=== PATIENT | female | born 1975 ===

== ENCOUNTER 2019-01-23 17:53 | Observation (INO) | payer OTHER ==
[2019-01-23] MEDS ORDERED: Oxycodone/Acetaminophen 5/325 mg Tab PO STA ×2 (18:01→18:02)
[2019-01-23] MEDS ORDERED: Sodium Chloride 0.9% 1,000 ML IV STA ×2 (18:27→18:32)
[2019-01-23] MEDS ORDERED: Morphine 4 MG/ML VIAL ONE (18:28)
[2019-01-23 19:25] LABS: BASO % 0.2 % (0.0-2.0); EOS % 0.4 % (0.0-4.0); HEMOGLOBIN 13.8 g/dL (12.0-16.0); LYMPH # 1.4 K/uL (1.0-4.3); LYMPH % 14.1 % (20.0-40.0); MEAN CELL VOLUME 96.6 fl (81.0-99.0); MEAN CORPUSCULAR HEMOGLOBIN 32.1 pg (27.0-31.0); MEAN CORPUSCULAR HGB CONC 33.2 g/dL (33.0-37.0); MEAN PLATELET VOLUME 8.9 fl (7.2-11.7); MONO # 0.7 K/uL (0.0-0.8); MONO % 6.8 % (0.0-10.0); NEUT # 7.7 K/uL (1.8-7.0); NEUT % 78.5 % (50.0-75.0); RBC 4.29 Mil/uL (3.80-5.20); RED CELL DISTRIBUTION WIDTH 13.9 % (11.5-14.5); WHITE BLOOD COUNT 9.8 K/uL (4.8-10.8)
[2019-01-23 19:38] LABS: ALB/GLOB RATIO 1.2 (1.0-2.1); ALBUMIN 4.3 g/dL (3.5-5.0); ALT/SGPT 23 U/L (9-52); AST/SGOT 23 U/L (14-36); BLOOD UREA NITROGEN 17 mg/dl (7-17); CALCIUM 9.7 mg/dL (8.4-10.2); GFR NON-AFRICAN AMERICAN > 60
[2019-01-23 19:59] LABS: PARTIAL THROMBOPLASTIN TIME 27.5 Seconds (25.6-37.1); PROTHROMBIN TIME 11.2 Seconds (9.8-13.1)
--- NOTE | 2019-01-23 21:05 | ED PDOC ---
Upper Extremity Pain/Injury Time Seen by Provider: 01/23/19 17:59 Chief Complaint (Nursing): Finger,Hand,&Wrist Chief Complaint (Provider): Right Wrist Injury History Per: Patient History/Exam Limitations: no limitations Onset/Duration Of Symptoms: Mins (30 min before arrival) Current Symptoms Are (Timing): Still Present Additional Complaint(s): 43 year old female presents to the ED for evaluation of a right wrist injury approximately thirty minutes prior to arrival s/p a trip and fall associated with numbness to all fingers in the affected hand. She notes she fractured the same wrist last year but it did not require surgical intervention. Reports having numbness to all finger tips. Denies other injury. Right hand dominant PMD: not in area Past Medical History Reviewed: Historical Data, Nursing Documentation, Vital Signs Vital Signs: Last Vital Signs Temp 98.3 F 01/23/19 17:55 Pulse 68 01/23/19 19:56 Resp 16 01/23/19 17:55 BP 127/85 01/23/19 19:56 Pulse Ox 98 01/23/19 17:55 - Medical History PMH: Fractures (right wrist) - Surgical History Surgical History: No Surg Hx - Family History Family History: States: Unknown Family Hx - Social History Current smoker - smoking cessation education provided: No Alcohol: Social Drugs: Denies - Home Medications Home Medications: Ambulatory Orders Medication Instructions Recorded Bupropion HCl [Wellbutrin Sr] 150 mg PO DAILY 01/23/19 - Allergies Allergies/Adverse Reactions: Allergies Allergy/AdvReac Type Severity Reaction Status Date / Time No Known Allergies Allergy Verified 01/23/19 17:56 Review of Systems ROS Statement: Except As Marked, All Systems Reviewed And Found Negative Musculoskeletal: Positive for: Other (right wrist pain) Neurological: Positive for: Numbness (to all fingers of right hand) Physical Exam - Reviewed Nursing Documentation Reviewed: Yes Vital Signs Reviewed: Yes - Physical Exam Appears: Positive for: In Acute Distress (severe painful) Head Exam: Positive for: ATRAUMATIC, NORMAL INSPECTION, NORMOCEPHALIC Skin: Positive for: Normal Color, Warm Eye Exam: Positive for: Normal appearance Neck: Positive for: Normal, Painless ROM, Supple Cardiovascular/Chest: Positive for: Regular Rate, Rhythm Respiratory: Positive for: Normal Breath Sounds. Negative for: Respiratory Distress Pulses-Radial (L): 2+ Pulses-Radial (R): 2+ Gastrointestinal/Abdominal: Positive for: Normal Exam, Soft. Negative for: Tend erness Back: Positive for: Normal Inspection Extremity: Positive for: Capillary Refill (less than 2 seconds), Deformity (right wrist), Other (able to actively move all digits of right hand) Neurologic/Psych: Positive for: Alert, Oriented (x3) - Laboratory Results Result Diagrams: 01/23/19 19:16 01/23/19 19:16 Lab Results: PT 11.2 Seconds (9.8-13.1) 01/23/19 19:16 INR 1.0 01/23/19 19:16 APTT 27.5 Seconds (25.6-37.1) 01/23/19 19:16 Total Bilirubin 0.5 mg/dl (0.2-1.3) 01/23/19 19:16 AST 23 U/L (14-36) 01/23/19 19:16 ALT 23 U/L (9-52) 01/23/19 19:16 Alkaline Phosphatase 49 U/L (38-126) 01/23/19 19:16 Total Protein 7.9 G/DL (6.3-8.2) 01/23/19 19:16 Albumin 4.3 g/dL (3.5-5.0) 01/23/19 19:16 Globulin 3.6 gm/dL (2.2-3.9) 01/23/19 19:16 Albumin/Globulin Ratio 1.2 (1.0-2.1) 01/23/19 19:16 - ECG O2 Sat by Pulse Oximetry: 98 (RA) Pulse Ox Interpretation: Normal Medical Decision Making Medical Decision Making: Time: 1800 Initial Impression: deformity to right wrist, likely fracture Initial Plan: --Percocet 2 tab PO --NS IV fluids --Right forearm XR --Right wrist XR XRs reviewed: distal radial fracture with serve displacement and dislocation of radius and ulna [address] Bell who reviewed images and states he will see patient in hospital tomorrow for operation. He requested patient be placed on NPO diet after midnight. Additional orders: --Morphine 4mg IVP secondary to patients severe persistent pain --Zofran 4mg IVP --CBC with differential --PTT --PT/INR --Type and screen --CMP --HCG, qualitative --CT right upper extremity 1856 On reevaluation, patient states she is still in severe pain. Additional 2mg IVP Morphine ordered. 1999 Pt. just moved from [place] and has no PMD or orthopedist here. Case discussed with Dr. Cabrera (med store protection specialist) and arrangements for admission were made. 2009 On reevaluation, patient notes still being in acute pain. Toradol 30mg IVP ordered. 2099 Upon reevaluation, patient reports pain still unrelieved with other medications. Dilaudid 1mg IVP ordered. Attempted to keep arm elevated and iced but pt. unable to tolerate position. Prefers to keep arm in sling as it is the most comfortable position for her. Further reports during the last injury she sustained a fracture to the tailbone. Reports that she saw her chiropractor for it. Reports also landing in a seated position today. Reports minimal pain to the area. Prefers to not do any x-rays at this time. Scribe Attestation: Documented by Irena Ruiz, acting as a scribe for Herminio Benito PA-C. Provider Scribe Attestation: All medical record entries made by the Scribe were at my direction and personally dictated by me. I have reviewed the chart and agree that the record accurately reflects my personal performance of the history, physical exam, medical decision making, and the department course for this patient. I have also personally directed, reviewed, and agree with the discharge instructions and disposition. Procedures - Time-Out Type of Procedure: Splint placement Site of Procedure: R arm Correct Patient: Yes Correct Procedure: Yes Correct Site Marked: Yes X-Ray Marked: Yes - Splinting Location: R arm Hand-Made Type: orthoglass Splint: sugar-tong Pre-Proc Neuro Vasc Exam: normal Post-Proc Neuro Vasc Exam: normal Disposition - Clinical Impression Clinical Impression: Fracture dislocation of wrist - Patient ED Disposition Is Patient to be Admitted: Yes - Disposition Disposition Time: 18:20 Condition: FAIR
[2019-01-23] MEDS: Morphine 5 MG/ML SYRINGE IVP PRN (23:24)
[2019-01-23] MEDS: buPROPion SR 150 MG TABLET PO SCH (23:52)
[2019-01-23] MEDS: Sodium Chloride 0.9% 1,000 ML IV SCH (23:55)
[2019-01-24] MEDS ORDERED: Morphine 5 MG/ML SYRINGE IVP ONE (01:17)
[2019-01-24] MEDS: Morphine 5 MG/ML SYRINGE IVP PRN ×2 (05:39→09:49)
[2019-01-24 06:29] LABS: HEMOGLOBIN 11.6 g/dL (12.0-16.0); MEAN CELL VOLUME 96.7 fl (81.0-99.0); MEAN CORPUSCULAR HGB CONC 33.1 g/dL (33.0-37.0); RBC 3.64 Mil/uL (3.80-5.20); RED CELL DISTRIBUTION WIDTH 13.8 % (11.5-14.5); WHITE BLOOD COUNT 6.4 K/uL (4.8-10.8)
--- NOTE | 2019-01-24 07:24 | CP.PCM.CON ---
History of Present Illness - History of Present Illness History of Present Illness: Orthopedic consult: Dr. Bell Patient is a 43 y/o RHD female c/o R wrist pain. Patient reports a slip and fall injury on outstretched right hand at home on her hardwood floor. She experienced immediate pain and deformity. She also complains of numbness and tingling to fingers. She reports a similar injury in December 2017, fracturing her right wrist but was treated conservatively with cast immobilization. She currently denies CP/SOB/N/V/D/fever/melena/dysuria. She was seen at bedside with splint removed beside her. She notes that long arm splint was placed in ER yesterday however, she removed the splint overnight due to pain. PMH: denies PSH: denies meds: none allergy: NKDA SH: ETOH occasionally, denies tobacco and drug use Review of Systems - Review of Systems All systems: reviewed and no additional remarkable complaints except Review of Systems: as per HPI Past Patient History - Past Medical History & Family History Past Medical History?: No Past Family History: Reviewed and not pertinent - Past Social History Alcohol: Social Drugs: Denies - CARDIAC Hx Cardiac Disorders: No - MUSCULOSKELETAL/RHEUMATOLOGICAL Hx Fractures: Yes (right wrist) - PSYCHIATRIC Hx Psychophysiologic Disorder: No Hx Substance Use: No - ANESTHESIA Hx Anesthesia: No Hx Anesthesia Reactions: No Meds Allergies/Adverse Reactions: Allergies Allergy/AdvReac Type Severity Reaction Status Date / Time No Known Allergies Allergy Verified 01/23/19 17:56 - Medications Medications: Current Medications Bupropion HCl (Wellbutrin Sr 150 Mg) 150 mg PO DAILY [facility] Last Admin: 01/23/19 23:52 Dose: 150 mg Sodium Chloride (Sodium Chloride 0.9%) 1,000 mls @ 80 mls/hr IV .[id number] [facility] Stop: 01/24/19 23:36 Last Admin: 01/23/19 23:55 Dose: 80 mls/hr Morphine Sulfate (Morphine) 4 mg IVP Q4 PRN PRN Reason: Pain, severe (8-10) Last Admin: 01/24/19 05:39 Dose: 4 mg Physical Exam - Constitutional Appears: Well, No Acute Distress - Eye Exam Eye Exam: EOMI, Normal appearance - ENT Exam ENT Exam: Mucous Membranes Moist - Respiratory Exam Respiratory Exam: NORMAL BREATHING PATTERN - Extremities Exam Additional comments: RUE: Long arm splint intact sensation intact MN/UN/RN motor intact MN/UN/RN 2 sec cap refill all fingers LUE: no deformity, no lesions, no swelling sensation intact MN/UN/RN motor intact MN/UN/RN 2 sec cap refill all fingers - Neurological Exam Neurological exam: Alert, Oriented x3 - Psychiatric Exam Psychiatric exam: Normal Affect, Normal Mood - Skin Skin Exam: Normal Color, Warm Results - Vital Signs Recent Vital Signs: Last Vital Signs Temp 97.2 F L 01/24/19 00:38 Pulse 99 H 01/24/19 00:38 Resp 20 01/24/19 00:38 BP 124/77 01/24/19 00:38 Pulse Ox 98 01/24/19 00:38 - Labs Result Diagrams: 01/24/19 05:25 01/24/19 05:25 Labs: Laboratory Results - last 24 hr 01/23/19 01/23/19 01/23/19 19:16 19:16 19:16 WBC 9.8 RBC 4.29 Hgb 13.8 Hct 41.5 MCV 96.6 MCH 32.1 H MCHC 33.2 RDW 13.9 Plt Count 265 MPV 8.9 Neut % (Auto) 78.5 H Lymph % (Auto) 14.1 L [place] % (Auto) 6.8 Eos % (Auto) 0.4 Baso % (Auto) 0.2 Neut # (Auto) 7.7 H Lymph # (Auto) 1.4 [place] # (Auto) 0.7 Eos # (Auto) 0.0 Baso # (Auto) 0.0 PT 11.2 INR 1.0 APTT 27.5 Sodium 138 Potassium 4.0 Chloride 103 Carbon Dioxide 22 Anion Gap 17 BUN 17 Creatinine 0.9 Est GFR ( Amer) > 60 Est GFR (Non-Af Amer) > 60 Random Glucose 115 H Calcium 9.7 Total Bilirubin 0.5 AST 23 ALT 23 Alkaline Phosphatase 49 Total Protein 7.9 Albumin 4.3 Globulin 3.6 Albumin/Globulin Ratio 1.2 Serum HCG, Qual Blood Type Antibody Screen BBK History Checked 01/23/19 01/23/19 01/24/19 19:16 19:16 05:25 WBC 6.4 RBC 3.64 L Hgb 11.6 L D Hct 35.2 MCV 96.7 MCH 32.0 H MCHC 33.1 RDW 13.8 Plt Count 217 MPV Neut % (Auto) Lymph % (Auto) [place] % (Auto) Eos % (Auto) Baso % (Auto) Neut # (Auto) Lymph # (Auto) [place] # (Auto) Eos # (Auto) Baso # (Auto) PT INR APTT Sodium Potassium Chloride Carbon Dioxide Anion Gap BUN Creatinine Est GFR ( Amer) Est GFR (Non-Af Amer) Random Glucose Calcium Total Bilirubin AST ALT Alkaline Phosphatase Total Protein Albumin Globulin Albumin/Globulin Ratio Serum HCG, Qual Negative Blood Type A POSITIVE Antibody Screen Negative BBK History Checked No verified bt - Impressions Impression: Accession No. : [id number] Patient Name / ID : GHAZAL MERIDA / [id number] Exam Date : 01/23/2019 17:59:49 ( Approved ) Study Comment : Sex / Age : F / 43Y Creator : isidro chandra Dictator : Donita Dhillon Child Development Specialist : Publishing Editor : Donita Dhillon Approver2 : Report Date : 01/23/2019 18:23:12 My Comment : Date of service: 01/23/2019 PROCEDURE: Right Wrist Radiographs. HISTORY: deformity COMPARISON: None. FINDINGS: BONES: There is a comminuted fracture of the distal radial metaphysis and epiphysis with impaction and/or over riding inferred on this single frontal view. Intra- articular extension is suggested Note is made that the forearm also had a single frontal view JOINTS: Limited assessment. Nevertheless the distal radial comminuted fracture suggest intra-articular extension SOFT TISSUES: Soft tissue swelling and deformity OTHER FINDINGS: None. IMPRESSION: Distal radial comminuted fracture with intra-articular extension. Limited exam given the single frontal view. Accession No. : [id number] Patient Name / ID : GHAZAL MERIDA / [id number] Exam Date : 01/23/2019 19:08:21 ( Approved ) Study Comment : Sex / Age : F / 43Y Creator : corine morgan Dictator : Shailesh Ruiz MD Child Development Specialist : Publishing Editor : Shailesh Ruiz MD Approver2 : Report Date : 01/23/2019 20:43:57 My Comment : Date of service: 01/23/2019 PROCEDURE: CT right wrist HISTORY: trauma with deformity COMPARISON: Not available TECHNIQUE: 2.5 mm contiguous axial sections were acquired through the right wrist. Sagittal and coronal images were reformatted from the axial scan. FINDINGS: There is a comminuted transverse distal radial fracture with marked dorsal displacement and overriding of the main fracture fragments. There is dorsal angulation of the distal radial fragment with the articulating carpus. There is possible disruption of the distal radial ulnar joint. There is a minimally displaced ulnar styloid process fracture. There is no other fracture identified. The intercarpal and carpal-metacarpal articulations appear intact. Normal carpal alignment is maintained. IMPRESSION: Comminuted dorsally displaced transverse distal radial fracture with overriding and dorsal angulation. Possible disruption of distal radial ulnar joint. Minimally displaced ulnar styloid process fracture. The preliminary findings for this examination were reported by [facility] at 8:32 p.m. on 01/23/2019. There is concurrence of this report with the preliminary findings. Assessment & Plan (1) Fracture of right distal radius Assessment and Plan: -Dr. Bell recommends OR today for R wrist ORIF -NPO -Risks/benefits/alternatives were explained to the patient who expresses understanding and agrees to proceed with above. -above d/w Dr. Bell in agreement Status: Acute - Date & Time Date: 01/24/19 Time: 07:15
[2019-01-24 07:26] LABS: ALB/GLOB RATIO 1.5 (1.0-2.1); ALBUMIN 3.8 g/dL (3.5-5.0); ALT/SGPT 30 U/L (9-52); AST/SGOT 19 U/L (14-36); BLOOD UREA NITROGEN 15 mg/dl (7-17); CALCIUM 8.5 mg/dL (8.4-10.2); GFR NON-AFRICAN AMERICAN > 60
[2019-01-24] MEDS: buPROPion SR 150 MG TABLET PO SCH (08:42)
--- NOTE | 2019-01-24 10:54 | CT ---
Date of service: 01/23/2019 PROCEDURE: CT right wrist HISTORY: trauma with deformity COMPARISON: Not available TECHNIQUE: 2.5 mm contiguous axial sections were acquired through the right wrist. Sagittal and coronal images were reformatted from the axial scan. FINDINGS: There is a comminuted transverse distal radial fracture with marked dorsal displacement and overriding of the main fracture fragments. There is dorsal angulation of the distal radial fragment with the articulating carpus. There is possible disruption of the distal radial ulnar joint. There is a minimally displaced ulnar styloid process fracture. There is no other fracture identified. The intercarpal and carpal-metacarpal articulations appear intact. Normal carpal alignment is maintained. IMPRESSION: Comminuted dorsally displaced transverse distal radial fracture with overriding and dorsal angulation. Possible disruption of distal radial ulnar joint. Minimally displaced ulnar styloid process fracture. The preliminary findings for this examination were reported by [facility] Radiology at 8:32 p.m. on 01/23/2019. There is concurrence of this report with the preliminary findings.
--- NOTE | 2019-01-24 11:02 | RAD ---
PROCEDURE: Radiographs of the Right Forearm HISTORY: trauma COMPARISON: None available. TECHNIQUE: Only a single frontal view is available. FINDINGS: BONES: Distal radial osseous deformity suspect for fracture is noted. No orthogonal views or additional views for further assessment are available. The fracture appears to extend into the radiocarpal joint. JOINT SPACES: Limited assessment. Findings as above OTHER FINDINGS: None. IMPRESSION: Distal radial fracture deformity with intra-articular extension suspect. The exam is limited given the single frontal view recommend two views. Comments: Study marked for PA review .
--- NOTE | 2019-01-24 11:05 | RAD ---
Date of service: 01/23/2019 PROCEDURE: Right Wrist Radiographs. HISTORY: deformity COMPARISON: None. FINDINGS: BONES: There is a comminuted fracture of the distal radial metaphysis and epiphysis with impaction and/or over riding inferred on this single frontal view. Intra-articular extension is suggested Note is made that the forearm also had a single frontal view JOINTS: Limited assessment. Nevertheless the distal radial comminuted fracture suggest intra-articular extension SOFT TISSUES: Soft tissue swelling and deformity OTHER FINDINGS: None. IMPRESSION: Distal radial comminuted fracture with intra-articular extension. Limited exam given the single frontal view.
--- NOTE | 2019-01-24 11:11 | RAD ---
Date of service: 01/24/2019 HISTORY: Admission/Pre-op COMPARISON: No prior. FINDINGS: LUNGS: No active pulmonary disease. PLEURA: Trace left inferolateral pleural reaction and/or pleural tenting. No significant appearing left pleural effusion noted No pneumothorax apparent. CARDIOVASCULAR: No aortic atherosclerotic calcification present. Normal cardiac size. No pulmonary vascular congestion. OSSEOUS STRUCTURES: No significant abnormalities. VISUALIZED UPPER ABDOMEN: Normal. OTHER FINDINGS: None. IMPRESSION: No consolidation.. Nonspecific findings as above. No significant cardiopulmonary pathology believed present.
--- NOTE | 2019-01-24 11:33 | CP.PCM.HP ---
History of Present Illness - History of Present Illness History of Present Illness: Patient tripped and fell at home sustaining Fx L wrist, She was seen in ER [facility] and [facility] Patient fell last year and sustained a Fx R wrist that was Tx with closed reduction, She has been treated with Accupuncture , NSAID, " anti inflammatory" diet for recurrent pain Cervical, L-S, Hips after that fall, She denies pain R wrist after that fall Present on Admission - Present on Admission Any Indicators Present on Admission: No Review of Systems - Constitutional Constitutional: Other (neg) - EENT Eyes: Other (neg) Ears: Other (neg) Nose/Mouth/Throat: Other (neg) - Cardiovascular Cardiovascular: Other (neg) - Respiratory Respiratory: Other (neg) - Gastrointestinal Gastrointestinal: Other (neg) - Genitourinary Genitourinary: Other (neg) - Musculoskeletal Musculoskeletal: Arthralgias, Back Pain, Neck Pain - Integumentary Integumentary: Other (neg) - Neurological Neurological: Other (neg) - Psychiatric Psychiatric: Anxiety, Depression - Endocrine Endocrine: Other (neg) - Hematologic/Lymphatic Hematologic: Other (nrg) Past Patient History - Tetanus Immunizations Tetanus Immunization: Unknown - Past Medical History & Family History Past Medical History?: No Past Family History: Reviewed and not pertinent - Past Social History Smoking Status: Current Some Days Smoker Cigar Use: Yes (former smoker 2ppd for 20 yrs, quit 7 yrs ago, occasional smoking now) Alcohol: Social Drugs: Denies - CARDIAC Hx Cardiac Disorders: No - PULMONARY Hx Respiratory Disorders: No - NEUROLOGICAL Hx Neurological Disorder: No - HEENT Hx HEENT Problems: No - RENAL Hx Chronic Kidney Disease: No - ENDOCRINE/METABOLIC Hx Endocrine Disorders: No - HEMATOLOGICAL/ONCOLOGICAL Hx Blood Disorders: No - INTEGUMENTARY Hx Dermatological Problems: No - MUSCULOSKELETAL/RHEUMATOLOGICAL Hx Back Pain: Yes Hx Fractures: Yes (right wrist) Other/Comment: Cervical , L-S, Hips pain post fall last year - GASTROINTESTINAL Hx Gastrointestinal Disorders: No - PSYCHIATRIC Hx Psychophysiologic Disorder: No Hx Depression: Yes Hx Substance Use: No - SURGICAL HISTORY Hx Surgeries: No - ANESTHESIA Hx Anesthesia: No Hx Anesthesia Reactions: No Meds Allergies/Adverse Reactions: Allergies Allergy/AdvReac Type Severity Reaction Status Date / Time No Known Allergies Allergy Verified 01/23/19 17:56 Physical Exam - Constitutional Appears: In Acute Distress (severe pain) - Head Exam Head Exam: ATRAUMATIC, NORMAL INSPECTION, NORMOCEPHALIC - Eye Exam Eye Exam: Normal appearance - ENT Exam ENT Exam: Normal Exam - Neck Exam Neck exam: Positive for: Tenderness - Respiratory Exam Respiratory Exam: NORMAL BREATHING PATTERN - Cardiovascular Exam Cardiovascular Exam: REGULAR RHYTHM - GI/Abdominal Exam GI & Abdominal Exam: Normal Bowel Sounds, Soft - Extremities Exam Extremities exam: Positive for: tenderness (R forearm, R hand splint with tenderness, numbness R fingers, moves R fingers) - Back Exam Back exam: tenderness Additional comments: L-S tenderness - Neurological Exam Neurological exam: Alert, CN II-XII Intact, Oriented x3 Additional comments: numbness R hand fingers, rest no motor/sensory deficit - Psychiatric Exam Psychiatric exam: Normal Affect, Normal Mood - Skin Skin Exam: Warm Results - Vital Signs Recent Vital Signs: Last Vital Signs Temp 97.9 F 01/24/19 08:01 Pulse 60 01/24/19 08:01 Resp 20 01/24/19 08:01 BP 106/64 01/24/19 08:01 Pulse Ox 97 01/24/19 08:01 - Labs Result Diagrams: 01/24/19 05:25 01/24/19 05:25 Labs: Laboratory Results - last 24 hr 01/23/19 01/23/19 01/23/19 19:16 19:16 19:16 WBC 9.8 RBC 4.29 Hgb 13.8 Hct 41.5 MCV 96.6 MCH 32.1 H MCHC 33.2 RDW 13.9 Plt Count 265 MPV 8.9 Neut % (Auto) 78.5 H Lymph % (Auto) 14.1 L [place] % (Auto) 6.8 Eos % (Auto) 0.4 Baso % (Auto) 0.2 Neut # (Auto) 7.7 H Lymph # (Auto) 1.4 [place] # (Auto) 0.7 Eos # (Auto) 0.0 Baso # (Auto) 0.0 PT 11.2 INR 1.0 APTT 27.5 Sodium 138 Potassium 4.0 Chloride 103 Carbon Dioxide 22 Anion Gap 17 BUN 17 Creatinine 0.9 Est GFR ( Amer) > 60 Est GFR (Non-Af Amer) > 60 Random Glucose 115 H Calcium 9.7 Total Bilirubin 0.5 AST 23 ALT 23 Alkaline Phosphatase 49 Total Protein 7.9 Albumin 4.3 Globulin 3.6 Albumin/Globulin Ratio 1.2 Thyroxine (T4) TSH 3rd Generation Serum HCG, Qual Blood Type Blood Type Confirm Antibody Screen BBK History Checked 01/23/19 01/23/19 01/24/19 19:16 19:16 05:25 WBC RBC Hgb Hct MCV MCH MCHC RDW Plt Count MPV Neut % (Auto) Lymph % (Auto) [place] % (Auto) Eos % (Auto) Baso % (Auto) Neut # (Auto) Lymph # (Auto) [place] # (Auto) Eos # (Auto) Baso # (Auto) PT INR APTT Sodium Potassium Chloride Carbon Dioxide Anion Gap BUN Creatinine Est GFR ( Amer) Est GFR (Non-Af Amer) Random Glucose Calcium Total Bilirubin AST ALT Alkaline Phosphatase Total Protein Albumin Globulin Albumin/Globulin Ratio Thyroxine (T4) TSH 3rd Generation Serum HCG, Qual Negative Blood Type A POSITIVE Blood Type Confirm A POSITIVE Antibody Screen Negative BBK History Checked No verified bt 01/24/19 01/24/19 05:25 05:25 WBC 6.4 RBC 3.64 L Hgb 11.6 L D Hct 35.2 MCV 96.7 MCH 32.0 H MCHC 33.1 RDW 13.8 Plt Count 217 MPV Neut % (Auto) Lymph % (Auto) [place] % (Auto) Eos % (Auto) Baso % (Auto) Neut # (Auto) Lymph # (Auto) [place] # (Auto) Eos # (Auto) Baso # (Auto) PT INR APTT Sodium 135 Potassium 3.6 Chloride 101 Carbon Dioxide 22 Anion Gap 16 BUN 15 Creatinine 0.6 L Est GFR ( Amer) > 60 Est GFR (Non-Af Amer) > 60 Random Glucose 122 H Calcium 8.5 Total Bilirubin 0.4 AST 19 ALT 30 Alkaline Phosphatase 38 D Total Protein 6.3 Albumin 3.8 Globulin 2.5 Albumin/Globulin Ratio 1.5 Thyroxine (T4) 6.21 TSH 3rd Generation 1.94 Serum HCG, Qual Blood Type Blood Type Confirm Antibody Screen BBK History Checked Assessment & Plan (1) Fracture dislocation of wrist Status: Acute (2) Fracture of right distal radius Status: Acute (3) History of depression Status: Acute (4) Lumbago Status: Acute (5) Cervical pain Status: Acute - Assessment and Plan (Free Text) Plan: CXR, EKG, blood test were reviewed, Patient is medically cleared for Surgery - Date & Time Date: 01/24/19 Time: 10:30
[2019-01-24] MEDS ORDERED: Rocuronium 10 mg/ml (5 ml) ONE (11:36)
[2019-01-24] MEDS ORDERED: Midazolam 2 MG/2 ML VIAL ONE (11:36)
[2019-01-24] MEDS ORDERED: Succinylcholine Chloride 20 mg/ml Syr (5 ml) IV ONE (11:36)
[2019-01-24] MEDS ORDERED: Propofol 10 mg/ml Inj (20 ML) ONE (11:36)
[2019-01-24] MEDS ORDERED: Lidocaine 4% (Laryng-O-Jet) Kit MM ONE (11:37)
[2019-01-24] MEDS ORDERED: Bupivacaine 0.5% Inj(30mL) ONE (11:43)
[2019-01-24] MEDS ORDERED: Ropivacaine 0.5% 30ML IV ONE (11:43)
[2019-01-24] MEDS ORDERED: Lactated Ringer's 1,000 ML IV ONE ×2 (12:25→14:45)
[2019-01-24] MEDS ORDERED: Sodium Chloride 0.9% 10 ML IV ONE (12:47)
[2019-01-24] MEDS ORDERED: ePHEDrine 50 mg/ml Inj ONE (12:47)
--- NOTE | 2019-01-24 13:34 | CARD ---
APPROVED REPORT Date of service: 01/24/2019 EKG Measurement Heart [id number] <Conclusion> Normal sinus rhythm Normal ECG
[2019-01-24] MEDS ORDERED: Oxycodone/Acetaminophen 5/325 mg Tab PO PRN ×2 (13:50→14:43)
[2019-01-24] MEDS ORDERED: Bacitracin Ointment 30 GM TUBE ONE (13:56)
[2019-01-24] MEDS ORDERED: Neostigmine 1:1000 (1 mg/ml) Inj ONE (14:00)
[2019-01-24] MEDS ORDERED: Morphine 5 MG/ML SYRINGE IVP PRN (14:43)
[2019-01-24] MEDS ORDERED: Dexamethasone 4 mg/1 ml IVP PRN (14:50)
[2019-01-24] MEDS ORDERED: HYDROmorphone 0.5 mg/0.5 ml ISec IVP PRN (14:50)
--- NOTE | 2019-01-24 14:55 | PCM.ANESB4 ---
Infraclavicular Block - Femoral Nerve Block Date of Procedure: 01/24/19 Anesthesiologist: Aric Kumar Pre-Procedure Diagnosis: Right wrist fracture Post-Procedure Diagnosis: R wrist fracture Procedure Performed: Brachial Plexus at the Infraclavicular area Right (Supraclavicular) - Procedure Infraclavicular Block: The procedure was explained to the patient that it is for the post-operative pain management. Consent was obtained after a thorough discussion with the patient regarding the benefits and possible complications of local anesthetic block of the brachial plexus at the supraclavicular area. The patient was brought to the operating room and standard monitors were applied. Time-out was held with the circulating nurse to confirm the correct surgery and the appropriate block. After inducing general anesthesia, patient's head was gently rotated away from the operative ___RIGHT shoulder and the area medial to the coracoid process and inferior to the clavicle was carefully palpated. The ultrasound transducer was then applied to the skin in the transverse plane and the brachial plexus was visualized surrounding the clavicular artery and deep to the pectoralis major and minor muscles. After thorough identification, this area was prepped with Chloraprep solution three times. At this point, a #21 gauge Stimuplex 4-inch needle was inserted cephalad to the ultrasound transducer and inferior to the clavicle in-plane towards the posterior aspect of the axillary artery. Needle advancement was performed carefully under ultrasound visualization. After repeated negative aspiration, ___5__cc of mixture of 0.5% bupivacaine and 0.5% ropivacaine with dexamethasone and this was followed with __25____ cc of the same mixture described. Under ultrasound guidance the local anesthetics were observed surrounding the cords of the brachial plexus. The needle was removed intact and sterile dressing was applied. The patient had stable vital signs, was conscious and in no apparent distress. The patient tolerated the supraclavicular block of the brachial plexus well with stable vital signs was prepared for subsequent surgery.
--- NOTE | 2019-01-24 14:55 | PCM.SURG1 ---
Surgeon's Initial Post Op Note - Surgeon's Notes Surgeon: Arabella Radiator Cleaner: DORITA Stone, 2nd assist Kasandra Portillo Type of Anesthesia: General Endo, Block Regional Anesthesia Administered By: DR alexandra Kumar Pre-Operative Diagnosis: Displaced/comminuted distal radius fracture. post traumatic carpal tunnel syndrome. median nerve compression. flexor tenosynovitis Operative Findings: median nerve compression. flexor tenosynovitis. displaced/comminuted distal radius fracture Post-Operative Diagnosis: as above Operation Performed: ORIF displaced/comminuted intrarticular distal radius fracture. release R transverse carpal ligament. partial median neurolysisi. partial flexor tenosynovextomy. applx short arm splint Specimen/Specimens Removed: tenosynovium/epineurium. fx callous Estimated Blood Loss: EBL {In ML}: 10 Blood Products Given: N/A Drains Used: No Drains Post-Op Condition: Fair Date of Surgery/Procedure: 01/24/19 Time of Surgery/Procedure: 13:10 (time min room 12:25/anaesthesia imndcutiontime)
--- NOTE | 2019-01-24 16:06 | RAD ---
Date of service: 01/24/2019 PROCEDURE: Right Wrist Radiographs. HISTORY: s/p R wrist ORIF COMPARISON: None. FINDINGS: BONES: Status post ORIF comminuted distal radial fracture. Fracture fragments are in near anatomic alignment. Bony detail is partially obscured in the frontal projection by overlying fiberglass splint. Displaced ulnar styloid process fracture noted. No additional fracture identified. JOINTS: Radiocarpal and intercarpal articulations are preserved. SOFT TISSUES: Normal. OTHER FINDINGS: None. IMPRESSION: Status post ORIF comminuted displaced distal radial fracture.
--- NOTE | 2019-01-24 16:17 | RAD ---
Date of service: 01/24/2019 PROCEDURE: Intraoperative fluoroscopy HISTORY: RIGHT WRIST COMPARISON: Not available TECHNIQUE: Intraoperative fluoroscopy was provided for ORIF of distal radial fracture. Total time of fluoroscopy was 10.0 sec. Cumulative dose was 0.22 mGy. FINDINGS: Multiple fluoroscopic spot films are submitted demonstrating progressive stages of distal radial ORIF. IMPRESSION: Fluoroscopy provided.
[2019-01-24] MEDS: Lactated Ringer's 1,000 ML IV SCH (16:30)
[2019-01-24] MEDS: ceFAZolin 2 GM in Sodium Chloride 0.9% 100 ML IVPB SCH (20:55)
[2019-01-25] MEDS: Lactated Ringer's 1,000 ML IV SCH ×2 (00:44→05:46)
[2019-01-25] MEDS: ceFAZolin 2 GM in Sodium Chloride 0.9% 100 ML IVPB SCH (03:25)
[2019-01-25] MEDS: Sodium Chloride 0.9% 1,000 ML IV SCH (03:33)
[2019-01-25 07:10] LABS: HEMOGLOBIN 10.2 g/dL (12.0-16.0); MEAN CELL VOLUME 95.9 fl (81.0-99.0); MEAN CORPUSCULAR HEMOGLOBIN 32.1 pg (27.0-31.0); MEAN CORPUSCULAR HGB CONC 33.5 g/dL (33.0-37.0); RBC 3.19 Mil/uL (3.80-5.20); WHITE BLOOD COUNT 7.4 K/uL (4.8-10.8)
[2019-01-25 08:10] VITALS: BP 95/59; PULSE 64; RESP 20; TEMP 98.8; O2SAT 96
[2019-01-25] MEDS ORDERED: Oxycodone/Acetaminophen 5/325 mg Tab PO PRN (10:11)
[2019-01-25] MEDS ORDERED: Oxycodone/Acetaminophen 5/325 mg Tab PO STA (10:12)
--- NOTE | 2019-01-25 10:28 | CP.PCM.PN ---
Subjective - Date & Time of Evaluation Date of Evaluation: 01/25/19 Time of Evaluation: 08:15 - Subjective Subjective: Patient seen and examined at bedside comfortable. Pain well controlled overnight. Notes that effects of nerve block are wearing off as she has regained motor function and sensation this AM. Has had arm elevated with IV pole overnight. No other complaints. Objective - Vital Signs/Intake and Output Vital Signs (last 24 hours): Temp Pulse Resp BP Pulse Ox 98.8 F 64 20 95/59 L 96 01/25/19 08:10 01/25/19 08:10 01/25/19 08:10 01/25/19 08:10 01/25/19 08:10 - Medications Medications: Current Medications Acetaminophen (Tylenol 325mg Tab) 650 mg PO Q4 PRN PRN Reason: Fever 101 degrees fahrenheit Last Admin: 01/25/19 05:44 Dose: 650 mg Bupropion HCl (Wellbutrin Sr 150 Mg) 150 mg PO DAILY JOVI Last Admin: 01/24/19 08:42 Dose: Not Given Cefazolin Sodium 2 gm/ Sodium (Chloride) 100 mls @ 100 mls/hr IVPB Q8H JOVI; Protocol Last Admin: 01/25/19 03:25 Dose: 100 mls/hr Lactated Ringer's (Lactated Ringer's) 1,000 mls @ 100 mls/hr IV .Q10H JOVI Last Admin: 01/25/19 05:46 Dose: 100 mls/hr Morphine Sulfate (Morphine) 2 mg IVP Q4 PRN PRN Reason: Pain, severe (8-10) Ondansetron HCl (Zofran Inj) 4 mg IVP Q6 PRN PRN Reason: Nausea/Vomiting Last Admin: 01/24/19 10:13 Dose: 4 mg Oxycodone/Acetaminophen (Percocet 5/325 Mg Tab) 2 tab PO Q4 PRN PRN Reason: Pain, moderate (4-7) Stop: 01/27/19 14:44 Oxycodone/Acetaminophen (Percocet 5/325 Mg Tab) 1 tab PO Q4 PRN PRN Reason: Pain, Mild (1-3) Stop: 01/27/19 13:51 - Labs Labs: 01/25/19 06:05 01/24/19 05:25 PT 11.2 Seconds (9.8-13.1) 01/23/19 19:16 INR 1.0 01/23/19 19:16 APTT 27.5 Seconds (25.6-37.1) 01/23/19 19:16 - Extremities Exam Additional comments: RUE: short arm splint intact sensation intact MN/UN motor intact MN/UN/RN 2 sec cap refill all fingers Assessment and Plan (1) Fracture of right distal radius Assessment & Plan: POD#1 s/p R wrist ORIF -PT/OT -strict elevation -NWB RUE -keep splint clean and dry -orthopedically stable for d/c to home -f/u in office within 7-10 days, call for appt -above d/w Dr. Bell in agreement Status: Acute
--- NOTE | 2019-01-25 13:18 | OP ---
PROCEDURE DATE: 01/24/2019 INCISION TIME: 13:10. TIME IN THE ROOM: 12:25. ANESTHESIA INDUCTION TIME: 12:25. OPERATIVE INDICATION: Gene Mohan is a 43-year-old woman, who sustained a severe fall on the right upper extremity on a polished hardwood floor. The patient presented to the emergency room at [facility]. The patient presented with extreme deformity and swelling. The patient was splinted, admitted, medical clearance was obtained, and the patient is taken to surgery as a relative emergency. The patient had evidence of numbness and tingling in the first three fingers of the hand, and had evidence of post-traumatic carpal tunnel syndrome. Pros, cons, risks, and benefits of surgical approach were discussed with the patient and her , Perez. The possibility of mechanical failure, infection, thromboembolic disease, secondary or tertiary surgery was discussed. PREOPERATIVE DIAGNOSES: 1. Displaced comminuted distal radius fracture with evidence of intra-articular extension. 2. Post-traumatic carpal tunnel syndrome. 3. Median nerve compression. 4. Flexor tenosynovitis. OPERATIVE FINDINGS: 1. Median nerve compression. 2. Flexor tenosynovitis. 3. Hematoma in the carpal canal. 4. Displaced comminuted distal radius fracture with hematoma in the lipoma of the carpal canal. POSTOPERATIVE DIAGNOSES: 1. Displaced comminuted distal radius fracture with evidence of intra-articular extension. 2. Post-traumatic carpal tunnel syndrome. 3. Median nerve compression. 4. Flexor tenosynovitis. OPERATIONS PERFORMED: 1. Open reduction internal fixation of a severely displaced distal radius fracture with intra-articular extension. 2. Median nerve release. 3. Excision of lipoma and hematoma of the carpal canal. 4. Capsulotomy of the wrist joint and evaluation of the wrist joint. 5. Release of transverse carpal ligament. 6. Partial flexor tenosynovectomy. 7. Partial median neurolysis. 8. Allograft bone graft. 9. Application of Bobby Paz compression dressing and volar splint. 10. Positioning of fluoroscope interpretation of video images. SURGEON: Maurisio Bell MD [id number] ADMINISTRATOR: NIKHIL Eden, certified registered nursing reference library assistant. SECOND PIZZA HUT ASSISTANT: Allen Pinzon PA-C It should be noted that the assistants were necessary at every step for exposure and completion of the operative goal. SPECIMENS REMOVED: Tenosynovium, epineurium, fracture callus. BLOOD LOSS: Approximately 10 to 15 mL. BLOOD PRODUCTS: No blood products given. COMPLICATIONS: None. DRAINS: No drains. POSTOPERATIVE CONDITION: Stable. DESCRIPTION OF PROCEDURE: After having obtained informed consent and after having identified side, site, and procedure, and a critical pause/time-out after the satisfactory induction of the anesthetic, the patient identified as Gene Mohan in the supine position with all bony prominences well padded, the right upper extremity was prepped and free draped in the usual fashion for upper extremity surgery. The tourniquet had been applied, but was not yet inflated. After exsanguinating the limb using a 4-inch Esmarch bandage, the tourniquet which had been applied was inflated to 250 mmHg. The operation was performed under magnification control. This having been accomplished, the operation being performed under magnification control, the right upper extremity was prepped and free draped in the usual fashion for upper extremity surgery. The tourniquet, which had been applied was inflated to 250 mmHg after having obtained informed consent, after having identified side, site, and procedure and critical pause/time-out and after the satisfactory induction of general endotracheal anesthesia. An incision was described in the median palmar crease on the right wrist, hand-wrist complex, deviating radially at the distal crease, deviating back ulnarly and in the interval between the flexor carpi radialis and the palmaris longus. The skin incision was carried down through the skin and subcutaneous tissue. The palmar aponeurosis was identified. Great care was taken to avoid injury to the palmar cutaneous branch of the median nerve as well as the motor branch of the median nerve. There was found to be evidence of hematoma in the lipoma of the carpal canal. The palmar aponeurosis was divided. The entire extend of the transverse carpal ligament was identified. Again, great care was taken to avoid injury to the neural structures, the palmar cutaneous branch of the median nerve, and the motor branch of the median nerve. The transverse carpal ligament was divided completely. At this point in time, there was found to be evidence of hematoma in the carpal canal as well as hematoma in the lipoma of the carpal canal. At this point, again under loupe magnification control, the lipoma of the carpal canal was excised. The entire extend of the transverse carpal ligament was divided, and at this point in time, there was found to be evidence of median nerve compression and the aforementioned hematoma in the carpal canal and in the lipoma of the carpal canal. The lipoma was excised at this point in time under direct vision and there was found to be a tenosynovitis with hemorrhage, and a partial tenosynovectomy was accomplished under direct vision with magnification using the tenotomy scissors. The epineurium was found to be inflamed and a careful median neurolysis was accomplished as well. At this point in time, the wrist capsule was identified. The wrist capsule was divided and there was found to be almost primarily a diaphyseal fracture. There was found to be evidence of intra-articular extension. At this point in time, the capsule was elevated. The fracture was found to be markedly displaced and comminuted. The fracture was curetted off healing callus using a combination of a curette and the small hand rongeur. The proximal carpal row was identified, and it was found to be intact. There was no evidence of damage to the scaphoid. There was evidence of extension into the joint. This having been accomplished, the fracture was reduced using a 0.25-inch osteotome with the clerical dentist assistant giving traction and the deformity being exacerbated and then reduced. The fracture was reduced with flexion and some ulnar deviation. At this point in time, using #15 blade and taking great care to avoid injury to the anterior interosseous branch of the median nerve, the pronator quadratus was divided. The fracture having been reduced, the plate was applied to the volar aspect of the fracture. The Synthesis locking plate was applied volarly. At this point in time, two pins were placed in the plate to secure it, and the initial screw was mobile with a non-locking mode. Drilling was accomplished sounding with the depth gauge, and the appropriate size screw was placed. That screw having been placed, the position of plate was adjusted proximally so that the screws distally will not enter the joint. At this point in time each sequential screw was placed in the locking mode. Drilling was accomplished sounding with the depth gauge and the appropriate size screws were placed both distally and proximally. Verification of position was offered on AP and lateral image intensification views. The more ulnar screw was removed and replaced with a screw 2 mm shorter, so there was no violation of the joint. The wound was thoroughly irrigated, allograft bone grafting was accomplished. It should be noted that the intra-articular extension was maintained and found to be anatomically reduced with the plate fixation. Allograft bone grafting was accomplished. At this point in time, the capsule was repaired using interrupted Arthrex FiberWire. Bone grafting having been accomplished, the wound had been thoroughly irrigated. Closures in layers with interrupted Vicryl, chase for skin proximally in the forearm, and nylon for the carpal tunnel release. Bobby Paz compression dressing and volar splint were applied. Verification of position was offered on AP and lateral image intensification views. Postoperative x-rays reveal excellent position of the construct. Maurisio Bell MD
--- NOTE | 2019-01-25 17:15 | CP.PCM.DIS ---
Provider - Provider Date of Admission: 01/23/19 20:02 Attending physician: Walter Cabrera MD Consults: 01/23/19 18:29 Orthopedic Consult Stat Comment: Consulting Provider: Maurisio Bell III Consulting Physician: Maurisio Bell III Reason for Consult: wrist fracture with dislocation Diagnosis - Discharge Diagnosis (1) Fracture dislocation of wrist Status: Acute (2) Fracture of right distal radius Status: Acute (3) History of depression Status: Acute (4) Lumbago Status: Acute (5) Cervical pain Status: Acute Hospital Course - Lab Results Lab Results: Most Recent Lab Values WBC 7.4 K/uL (4.8-10.8) 01/25/19 06:05 RBC 3.19 Mil/uL (3.80-5.20) L 01/25/19 06:05 Hgb 10.2 g/dL (12.0-16.0) L 01/25/19 06:05 Hct 30.6 % (34.0-47.0) L 01/25/19 06:05 MCV 95.9 fl (81.0-99.0) 01/25/19 06:05 MCH 32.1 pg (27.0-31.0) H 01/25/19 06:05 MCHC 33.5 g/dL (33.0-37.0) 01/25/19 06:05 RDW 14.0 % (11.5-14.5) 01/25/19 06:05 Plt Count 187 K/uL (130-400) 01/25/19 06:05 MPV 8.9 fl (7.2-11.7) 01/23/19 19:16 Neut % (Auto) 78.5 % (50.0-75.0) H 01/23/19 19:16 Lymph % (Auto) 14.1 % (20.0-40.0) L 01/23/19 19:16 [place] % (Auto) 6.8 % (0.0-10.0) 01/23/19 19:16 Eos % (Auto) 0.4 % (0.0-4.0) 01/23/19 19:16 Baso % (Auto) 0.2 % (0.0-2.0) 01/23/19 19:16 Neut # (Auto) 7.7 K/uL (1.8-7.0) H 01/23/19 19:16 Lymph # (Auto) 1.4 K/uL (1.0-4.3) 01/23/19 19:16 [place] # (Auto) 0.7 K/uL (0.0-0.8) 01/23/19 19:16 Eos # (Auto) 0.0 K/uL (0.0-0.7) 01/23/19 19:16 Baso # (Auto) 0.0 K/uL (0.0-0.2) 01/23/19 19:16 PT 11.2 Seconds (9.8-13.1) 01/23/19 19:16 INR 1.0 01/23/19 19:16 APTT 27.5 Seconds (25.6-37.1) 01/23/19 19:16 Sodium 135 mmol/l (132-148) 01/24/19 05:25 Potassium 3.6 MMOL/L (3.6-5.0) 01/24/19 05:25 Chloride 101 mmol/L (98-107) 01/24/19 05:25 Carbon Dioxide 22 mmol/L (22-30) 01/24/19 05:25 Anion Gap 16 (10-20) 01/24/19 05:25 BUN 15 mg/dl (7-17) 01/24/19 05:25 Creatinine 0.6 mg/dl (0.7-1.2) L 01/24/19 05:25 Est GFR ( Amer) > 60 01/24/19 05:25 Est GFR (Non-Af Amer) > 60 01/24/19 05:25 Random Glucose 122 mg/dL (65-105) H 01/24/19 05:25 Calcium 8.5 mg/dL (8.4-10.2) 01/24/19 05:25 Total Bilirubin 0.4 mg/dl (0.2-1.3) 01/24/19 05:25 AST 19 U/L (14-36) 01/24/19 05:25 ALT 30 U/L (9-52) 01/24/19 05:25 Alkaline Phosphatase 38 U/L (38-126) D 01/24/19 05:25 Total Protein 6.3 G/DL (6.3-8.2) 01/24/19 05:25 Albumin 3.8 g/dL (3.5-5.0) 01/24/19 05:25 Globulin 2.5 gm/dL (2.2-3.9) 01/24/19 05:25 Albumin/Globulin Ratio 1.5 (1.0-2.1) 01/24/19 05:25 Thyroxine (T4) 6.21 ug/dl (5.5-11.0) 01/24/19 05:25 TSH 3rd Generation 1.94 mIU/ML (0.46-4.68) 01/24/19 05:25 Serum HCG, Qual Negative (NEGATIVE) 01/23/19 19:16 Blood Type A POSITIVE 01/23/19 19:16 Blood Type Confirm A POSITIVE 01/24/19 05:25 Antibody Screen Negative 01/23/19 19:16 BBK History Checked No verified bt 01/23/19 19:16 Discharge Exam - Head Exam Head Exam: ATRAUMATIC, NORMAL INSPECTION, NORMOCEPHALIC Discharge Plan - Discharge Medications Prescriptions: oxyCODONE/Acetaminophen [Percocet 5/325 mg Tab] 1 tab PO Q4 PRN #24 tab PRN Reason: Pain, Moderate (4-7) - Follow Up Plan Condition: FAIR Disposition: HOME/ ROUTINE Instructions: Wrist Fracture (DC), Radius Fracture (DC), Nerve Blocks Additional Instructions: follow up with Dr. Bell 5-7 days elevate right arm Referrals: Maurisio Bell III, MD [Family Provider] -
== END 2019-01-25 13:08 | disposition home or self-care (01) ==
LOC: H.ER 17:53 → INTOOBSV 20:02 → H.ERHOLD 20:02 → H.MEDSURG1 21:52
PROVIDERS: ADMIT Internal Medicine Pulmonary Disease; ATTEND Internal Medicine Pulmonary Disease
DX: S52.571A Other intraarticular fracture of lower end of right radius, initial encounter for closed fracture (principal); S52.613A Displaced fracture of unspecified ulna styloid process, initial encounter for closed fracture; G56.01 Carpal tunnel syndrome, right upper limb; D17.39 Benign lipomatous neoplasm of skin and subcutaneous tissue of other sites; M65.831 Other synovitis and tenosynovitis, right forearm; W01.0XXA Fall on same level from slipping, tripping and stumbling without subsequent striking against object, initial encounter; M54.5 Low back pain; F32.9 Major depressive disorder, single episode, unspecified; F17.210 Nicotine dependence, cigarettes, uncomplicated; Y92.099 Unspecified place in other non-institutional residence as the place of occurrence of the external cause
CPT/HCPCS: 25115; 25608; 36415; 64415; 64721; 64727; 71045; 73090; 73110; 73200; 76000; 80053; 84436; 84443; 84703; 85025; 85027; 85610; 85730; 86850; 86900; 88304; 88305; 93005; 96361; 96374; 96375; 96376; 97161; 97165; 99284; C1713; G0378; G8978; G8979; G8987; G8988; G8989; J0690; J1170; J1885; J2001; J2250; J2270; J2405; J2704; J2710; J3010; J7030; J7120